=== PATIENT | female | born 1995 | race Caucasian/White ===

== ENCOUNTER 2023-02-09 13:16 | Emergency (ER) | payer MEDICAID ==
[~2023-02-09] VITALS: Ht 160 cm; Wt 42.0 kg
[2023-02-09 13:25] VITALS: BP 98/60; TEMP 98.7; O2SAT 99
[2023-02-09 13:30] VITALS: PULSE 99; RESP 20
[2023-02-09] MEDS ORDERED: ACETAMINOPHEN 325MG TABLET PO ONE (14:00)
== END 2023-02-09 15:49 | disposition home or self-care (01) ==
LOC: ER 14:10
DX: R51.9 Headache, unspecified (principal)
CPT/HCPCS: 81025; 99282